=== PATIENT | male | born 1955 | race Caucasian/White ===

== ENCOUNTER 2016-09-30 01:49 | Emergency (ER) | payer BC ==
[2016-09-30] MEDS ORDERED: ONDANSETRON HCL 4 MG/2 ML VIAL ONE ×2 (02:11→03:13)
[2016-09-30] MEDS ORDERED: HYDROmorphone HCL 1 MG/ML SYR ONE (02:11)
[2016-09-30] MEDS ORDERED: KETOROLAC TROMETHAMINE 30 MG/ML VIAL ONE ×2 (02:11→03:13)
[2016-09-30 02:19] LABS: EOSINOPHILS 0.2 % (0.0-6.0); MEAN CELL VOLUME 89.9 fL (84.0-102.0)
[2016-09-30 02:31] LABS: A/G RATIO 1.2; ALBUMIN 4.1 g/dL (3.5-5.0); BILIRUBIN, TOTAL 0.8 mg/dL (0.2-1.3); CALCIUM 9.2 mg/dL (8.4-10.2); CREATININE 1.3 mg/dL (0.7-1.3); POTASSIUM 4.4 mmol/L (3.5-5.1); TOTAL PROTEIN 7.6 g/dL (6.3-8.2); URIC ACID 7.3 mg/dL (3.5-8.5)
[2016-09-30 02:32] LABS: BASOPHIL# 0.1 X 10^3uL (0.0-0.1); BASOPHILS 0.4 % (0.0-2.0); HEMOGLOBIN 15.3 g/dL (14.0-18.0); LYMPHOCYTES 7.3 % (20.0-40.0); LYMPHOCYTES# 0.9 X 10^3uL (0.8-3.8); MEAN CORPUSCULAR HEMOGLOBIN 30.6 pg (29.0-35.0); MEAN PLATELET VOLUME 8.2 fL (7.4-10.4); MONOCYTES# 0.5 X 10^3uL (0.2-1.0); NEUTROPHILS# 11.3 X 10^3uL (2.6-6.7); RED BLOOD COUNT 5.01 X 10^6uL (4.20-6.10); RED CELL DISTRIBUTION WIDTH 11.3 % (11.5-14.5); WHITE BLOOD COUNT 12.8 X 10^3uL (3.9-10.7)
[2016-09-30 02:35] LABS: NEUTROPHILS 88.1 % (54.0-75.0)
--- NOTE | 2016-09-30 02:59 | CT REPORT ---
HISTORY: Right-sided flank pain. TECHNIQUE: Multiple contiguous transaxial images of the abdomen were obtained without contrast. Scans were obta ined from the lung bases through the mid sacrum. FINDINGS: Lung Bases: There is a 4 mm nodule at the right lung base. Liver: Local calcifications are noted in the right hepatic lobe. Gallbladder: The gallbladder is normal in appearance without evidence of calcified stones or inflamma tory changes. Spleen: The spleen is normal in appearance. Pancreas: No pancreatic abnormality is seen. No masses are noted and no inflammatory changes are seen . Kidneys: There is bilateral nephrolithiasis. Mild right hydronephrosis and proximal hydroureter is se en secondary to a 6 mm calculus in the ureteropelvic junction with minimal right perinephric strandin g. Adrenals: The adrenal glands are unremarkable. Vasculature: The aorta and IVC demonstrate normal caliber. GI Tract: The stomach, small and large bowel are unremarkable in appearance. Retroperitoneal: No significant lymphadenopathy or ascites is identified. Bony Structures: Visualized bony structures are unremarkable in appearance. Bladder: The bladder distends normally. IMPRESSION: 1. A 6 mm right UPJ calculus resulting in mild right hydronephrosis and perinephric stranding. 2. Bilateral nephrolithiasis. 3. A 4 mm nodule at the right lung base. Recommend a completion nonurgent CT chest for further evalu ation. Final Electronic Signature: This report was electronically signed by Taryn Garcia MD on 09/30/2016 2:57 AM. [email or web address] /
[2016-09-30] MEDS ORDERED: TAMSULOSIN HCL 0.4 MG CAPSULE PO ONE (03:13)
[2016-09-30] MEDS ORDERED: ONDANSETRON ODT PREPAC 4 MG TAB.RAPDIS PO ONE (03:39)
[2016-09-30] MEDS ORDERED: HYDROcodone/APAP 5/325 MG 1 TAB TABLET PO ONE (03:39)
--- NOTE | 2016-09-30 03:39 | ER NURSING DOCUMENTATION ---
Nurse's Notes [facility] Name:Yrn Hearn Age:60 yrs Sex:Male :1955 Arrival Date:09/30/2016 Time:01:49 Bed4 Private MD:Shameka Stewart Diagnosis:Renal Colic Presentation: 09/30 01:50 Acuity: HUMPHREY 3 rh 01:54 Presenting complaint: Patient states: at 1600 this evening pt began having right sided rh flank pain that radiated down into his groin. Pt had nausea, vomiting and pain upon urination as well. Transition of care: Home. 01:54 Method Of Arrival: Walk In Triage Assessment: 01:57 General: Appears in no apparent distress, Behavior is cooperative. Pain: Complains of rh pain in right low back Pain radiates to groin. Neuro: Level of Consciousness is awake, alert, obeys commands. Cardiovascular: Capillary refill < 3 seconds. Respiratory: Airway is patent. GI: Reports nausea, vomiting. : Reports pain in lower back with urination. Derm: Skin is intact, is healthy with good turgor, Skin is pink, warm & dry. Musculoskeletal: Circulation, motion, and sensation intact Range of motion intact in all extremities. Historical: - Allergies: PENICILLINS; - Home Meds: 1. aspirin 81 mg oral tab 1 tab once daily - PMHx: KIDNEY STONES; - PSHx: None; - Tetanus: < 10 years. - Ebola Screening: : Patient negative for fever greater than or equal to 101.5 degrees Fahrenheit, and additional compatible Ebola Virus Disease symptoms. - Immunization history: Flu Vaccine < 1 year. - Social history: Smoking status: Patient states former smoker of tobacco. Screenin:58 Infectious Disease Risk None. Abuse screen: Denies threats or abuse. Denies injuries rh from another. Nutritional screening: No deficits noted. Assessment: 01:58 See Triage Assessment done by same RN. Vital Signs: 01:57 BP 148 / 87; Pulse 76; Resp 14; Temp 97.7; Pulse Ox 91% on R/A; Weight 88.45 kg; Height em1 6 ft. 0 in. (182.88 cm); Pain 6/10; 03:29 BP 132 / 64; Pulse 68; Pulse Ox 90% on R/A; em1 03:32 BP 132 / 64; Pulse 66; Resp 15; Pulse Ox 94% on R/A; Pain 4/10; rh 01:57 Body Mass Index 26.45 (88.45 kg, 182.88 cm) em1 ED Course: 01:50 Patient arrived in ED. em2 01:50 Shameka Stewart MD is Private Physician. em2 01:50 Betsy Andino is Primary Nurse. rh 01:50 Triage completed. rh 01:58 Notified ED Physician of patient's arrival and chief complaint. Dr. Jerome notified. rh 01:58 Valuables Remains with patient Patient has correct armband on for positive rh identification. Bed in low position. Call light in reach. Side rails up X 1. 02:08 Inserted peripheral IV: 20 gauge in right antecubital area and blood collected. mv 02:13 Jatinder Jerome MD is Attending Physician. tl1 02:[address] ca 02:[address] back from [address]. ca 03:15 Bean Felipe MD is Referral Physician. tl1 03:29 Discontinued IV lock bleeding controlled, pressure dressing applied. em1 Administered Medications: 02:02 Drug: Zofran 4 mg; Route: IVP; Infused Over: 2 mins; Site: right antecubital; rh 03:08 Follow up: Response: Nausea is decreased rh 02:05 Drug: Toradol 15 mg; Route: IVP; Site: right antecubital; rh 03:07 Follow up: Response: Pain is decreased rh 02:07 Drug: NS 0.9% 1000 ml; Route: IV; Rate: bolus; Site: right antecubital; mv 03:00 Follow up: IV Status: Completed infusion; IV Intake: 1000ml rh 02:07 Drug: Dilaudid 1 mg; Route: IVP; Site: right antecubital; rh 03:08 Follow up: Response: Pain is decreased rh 03:04 Drug: Zofran 4 mg; Route: IVP; Infused Over: 2 mins; Site: right antecubital; rh 03:36 Follow up: Response: Nausea is decreased rh 03:06 Drug: Toradol 15 mg; Route: IVP; Site: right antecubital; rh 03:36 Follow up: Response: Pain is decreased rh 03:07 Drug: Flomax - Tamsulosin Capsule 0.4 mg; Route: PO; rh 03:36 Follow up: Response: No adverse reaction 03:37 Drug: HYDROcodone-acetaminophen (5mg/325 mg) 1-2 tabs 1 tabs; Route: PO; 03:37 Follow up: Response: Pharmacy closed - take home med pack 03:37 Drug: Zofran 1 tablet; Route: PO; 03:37 Follow up: Response: Pharmacy closed - take home med pack Point of Care Testing: Urine Dip: 02:59 pH: 5.5; ; Specific [place]: 1.020; Ketones: Trace; Glucose: Negative; Protein: rh Negative; Leukocytes: Negative; Nitrite: Negative ; Blood: Hemolyzed Trace; Bilirubin: Negative ; Urobilinogen: Normal Intake: 03:00 IV: 1000ml; Total: 1000ml. Outcome: 03:15 Discharge ordered by tl1 03:32 Discharged to home ambulatory. 03:32 Condition: improved 03:32 Discharge Assessment: Patient awake, alert and oriented x 3. No cognitive and/or functional deficits noted. Patient verbalized understanding of disposition instructions. 03:32 Discharge instructions given to patient, Instructed on discharge instructions, follow up and referral plans. medication usage, no drinking with medication, no driving heavy equipment, Demonstrated understanding of instructions, medications, Prescriptions given X 3. 03:32 IV D/Dylan 03:38 Patient left the ED. 10/01 12:08 Discharge F/U Call: Unable to reach: no answer nf Signatures: Holly Obregon RN RN nf [employer], [employer] em1 Mein-reg, Dariana-reg em2 Yrn Whitaker Tom, MD MD tl1 Betsy Andino delta fraga
--- NOTE | 2016-09-30 03:39 | ER PHYSICIAN DOCUMENTATION ---
Physician Documentation [facility] Name:Yrn Hearn Age:60 yrs Sex:Male :1955 Arrival Date:09/30/2016 Time:01:49 Bed4 Private MD:Shameka Stewart ED, Tom Disposition: 09/30 04:00 Chart complete. tl1 Disposition: 09/30/16 03:15 Discharged to Home/Self Care. Impression: Renal Colic. - Condition is Good. - Discharge Instructions: RENAL STONE w Colic - KIDNEY STONE w/ Colic. - Prescriptions for [place] 7.5- 325 mg Oral Tablet - take 1 tablet by ORAL route every 6 hours As needed; 20 tablet. Flomax 0.4 mg Oral - take 1 capsule by ORAL route once daily 1/2 hour following the same meal each day; 15 capsule. Zofran 4 mg Oral Tablet - take 1-2 tablet by ORAL route every 4-6 hours As needed; 10 tablet. - Medical Reconciliation form form. - Follow up: Bean Felipe MD; When: 1 - 2 days; Reason: Recheck today's complaints, Continuance of care. - Problem is new. - Symptoms have improved. HPI: 02:05 This 60 yrs old Male presents to ER via Walk In with complaints of Possible tl1 Kidney Stone. 02:05 The patient complains of pain in the right low back. The pain radiates to the right tl1 lower quadrant. Onset: The symptom(s)/episode began/occurred suddenly, 10 hour(s) ago. Severity of pain: At its worst the pain was moderate in the emergency department the pain is unchanged. The patient has experienced similar episodes in the past, a few times. The patient has not recently seen a physician. Has had 2 other episodes of renal colic, documented by stone capture. This is different in that the stone seems to have stopped moving, and the persistence of the pain concens him. Denied f/c/s. No hematuria or dysuria. No h/o HTN or vascular disease. . Historical: - Allergies: PENICILLINS; - Home Meds: 1. aspirin 81 mg oral tab 1 tab once daily - PMHx: KIDNEY STONES; - PSHx: None; - Tetanus: < 10 years. - Ebola Screening: : Patient negative for fever greater than or equal to 101.5 degrees Fahrenheit, and additional compatible Ebola Virus Disease symptoms. - Immunization history: Flu Vaccine < 1 year. - Social history: Smoking status: Patient states former smoker of tobacco. ROS: 02:17 Abdomen/GI: Positive for abdominal pain, Negative for diarrhea, constipation, abdominal tl1 cramps, abdominal distension, anorexia, dysphagia, hematemesis, black/tarry stool, rectal pain, rectal bleeding. 02:17 : Positive for flank pain, Negative for injury or acute deformity, urinary frequency, hematuria, burning with urination, difficulty urinating, bladder incontinence, foul smelling urine. 02:17 All other systems are negative. Exam: 02:18 Constitutional: This is a well developed, well nourished patient who is awake, alert, tl1 and in no acute distress. Head/Face: Normocephalic, atraumatic. Eyes: Pupils equal round and reactive to light, extra-ocular motions intact. Lids and lashes normal. Conjunctiva and sclera are non-icteric and not injected. Cornea within normal limits. Periorbital areas with no swelling, redness, or edema. ENT: Nares patent. No nasal discharge, no septal abnormalities noted. Tympanic membranes are normal and external auditory canals are clear. Oropharynx with no redness, swelling, or masses, exudates, or evidence of obstruction, uvula midline. Mucous membranes moist. Neck: Trachea midline, no thyromegaly or masses palpated, and no cervical lymphadenopathy. Supple, full range of motion without nuchal rigidity, or vertebral point tenderness. No Meningismus. 02:18 Chest/axilla: Normal chest wall appearance and motion. Nontender with no deformity. tl1 No lesions are appreciated. 02:18 Cardiovascular: Rate: normal, Rhythm: regular, Pulses: no pulse deficits are appreciated, Heart sounds: normal, Edema: is not appreciated, JVD: is not appreciated. 02:18 Respiratory: the patient does not display signs of respiratory distress. 02:18 Abdomen/GI: Bowel sounds: diminished, Palpation: soft, moderate abdominal tenderness, in the right lower quadrant, rebound tenderness, is not appreciated, voluntary guarding, is not appreciated. 02:18 Back: CVA tenderness, that is mild, is noted on the right. 02:18 : CVA tenderness, on the right, Bladder: tenderness, that is mild. 02:18 Skin: Exam negative for 02:18 Neuro: Exam negative for acute changes. Vital Signs: 01:57 BP 148 / 87; Pulse 76; Resp 14; Temp 97.7; Pulse Ox 91% on R/A; Weight 88.45 kg; Height em1 6 ft. 0 in. (182.88 cm); Pain 6/10; 03:29 BP 132 / 64; Pulse 68; Pulse Ox 90% on R/A; em1 03:32 BP 132 / 64; Pulse 66; Resp 15; Pulse Ox 94% on R/A; Pain 4/10; rh 01:57 Body Mass Index 26.45 (88.45 kg, 182.88 cm) em1 MDM: 02:13 Patient medically screened. tl1 02:19 Differential diagnosis: nephrolithiasis, pyelonephritis, UTI, testicular torsion, tl1 diverticulitis, pancreatitis, ruptured AAA, dissecting AAA. Data reviewed: vital signs, nurses notes, diagnostic data from outside facility, lab test result(s), CBC, electrolytes, hepatic panel, urinalysis, and as a result, I will admit patient. Counseling: I had a detailed discussion with the patient and/or guardian regarding: the historical points, exam findings, and any diagnostic results supporting the discharge/admit diagnosis, lab results, radiology results, the need for outpatient follow up, to return to the emergency department if symptoms worsen or persist or if there are any questions or concerns that arise at home. 04:00 ED course: Pain significantly better after dilaudid and toradol.. tl1 09/30 02:35 Order name: COMPREHENSIVE METABOLIC PANEL; Complete Time: 09:14 EDMS 10/01 09:13 Interpretation: Normal. tl1 09/30 02:35 Order name: URIC ACID; Complete Time: 09:14 EDMS 10/01 09:13 Interpretation: Normal: URIC ACID 7.3. tl1 09/30 02:36 Order name: CBC AUTO DIF, MDIF/RMOR IF IND; Complete Time: 09:14 EDMS 10/01 09:13 Interpretation: WHITE BLOOD COUNT 12.8; HEMOGLOBIN 15.3; HEMATOCRIT 45.0; PLATELET tl1 COUNT 326; NEUTROPHILS 88.1. 09/30 03:00 Order name: CAT SCAN; ABD/[place] [id number]; Complete Time: 09:14 EDMS 10/01 09:14 Interpretation: See report. tl1 09/30 01:59 Order name: Iv Saline Lock; Complete Time: 02:08 09/30 02:59 Order name: Urine Dip; Complete Time: :59 Dispensed Medications: 02:02 Drug: Zofran 4 mg; Route: IVP; Infused Over: 2 mins; Site: right antecubital; rh 03:08 Follow up: Response: Nausea is decreased rh 02:05 Drug: Toradol 15 mg; Route: IVP; Site: right antecubital; rh 03:07 Follow up: Response: Pain is decreased rh 02:07 Drug: NS 0.9% 1000 ml; Route: IV; Rate: bolus; Site: right antecubital; 03:00 Follow up: IV Status: Completed infusion; IV Intake: 1000ml rh 02:07 Drug: Dilaudid 1 mg; Route: IVP; Site: right antecubital; rh 03:08 Follow up: Response: Pain is decreased rh 03:04 Drug: Zofran 4 mg; Route: IVP; Infused Over: 2 mins; Site: right antecubital; rh 03:36 Follow up: Response: Nausea is decreased rh 03:06 Drug: Toradol 15 mg; Route: IVP; Site: right antecubital; rh 03:36 Follow up: Response: Pain is decreased rh 03:07 Drug: Flomax - Tamsulosin Capsule 0.4 mg; Route: PO; rh 03:36 Follow up: Response: No adverse reaction rh 03:37 Drug: HYDROcodone-acetaminophen (5mg/325 mg) 1-2 tabs 1 tabs; Route: PO; rh 03:37 Follow up: Response: Pharmacy closed - take home med pack rh 03:37 Drug: Zofran 1 tablet; Route: PO; rh 03:37 Follow up: Response: Pharmacy closed - take home med pack Point of Care Testing: Urine Dip: :59 pH: 5.5; ; Specific [place]: 1.020; Ketones: Trace; Glucose: Negative; Protein: rh Negative; Leukocytes: Negative; Nitrite: Negative ; Blood: Hemolyzed Trace; Bilirubin: Negative ; Urobilinogen: Normal Signatures: Jatinder Jerome MD MD tl1 Betsy Andino rh delta fraga mv
== END 2016-09-30 03:39 | disposition home or self-care (01) ==
LOC: ER 01:49
DX: N20.0 Calculus of kidney (principal); N13.0 Hydronephrosis with ureteropelvic junction obstruction; N23 Unspecified renal colic; R10.31 Right lower quadrant pain; R91.1 Solitary pulmonary nodule; Z87.442 Personal history of urinary calculi; Z79.82 Long term (current) use of aspirin
CPT/HCPCS: 74176; 80053; 84550; 85025; 96361; 96374; 96375; 96376; 99284; J1170; J1885; J2405